=== PATIENT | male | born 1945 | race Caucasian/White ===

== ENCOUNTER 2018-01-27 17:46 | Emergency (ER) | payer MEDICARE, BC ==
--- NOTE | 2018-01-27 18:49 | EDM.PDOC ---
<Chelsea Painting - Last Filed: 01/27/18 19:34> ED HPI GENERAL MEDICAL PROBLEM - General Chief Complaint: Upper Extremity Injury/Pain Stated Complaint: [id number] CRACKED WRIST Time Seen by Provider: 01/27/18 18:30 Source of Information: Reports: Patient, RN, RN Notes Reviewed History Limitations: Reports: No Limitations - History of Present Illness INITIAL COMMENTS - FREE TEXT/NARRATIVE: Pt presents to the ER with c/o left wrist pain. Patient states he was changing the blades on his lawnmower when a power tool flew out of his hand and hit him on the left hand/wrist. He states he has a large skin tear on the left hand, but has been having increasing aching and pain in the left wrist. He denies numbness or tingling, states he can move his fingers but not make a fist. Onset: Today, Sudden Duration: Constant Location: Reports: Upper Extremity, Left Quality: Reports: Ache, Dull, Throbbing Severity: Moderate Improves with: Reports: None Worsens with: Reports: None Left Wrist Pain Score (Numeric/FACES): 1 - Related Data Allergies Allergy/AdvReac Type Severity Reaction Status Date / Time tetanus toxoid, adsorbed Allergy Fever Verified 01/27/18 18:00 Home Meds: Home Meds Acetaminophen [Tylenol] 650 mg PO BID 10/17/13 [History] Ascorbic Acid [Vitamin C] 500 mg PO BID 10/17/13 [History] Aspirin [Reese Chewable] 81 mg PO DAILY 10/17/13 [History] Clopidogrel Bisulfate [Clopidogrel] 1 tab PO DAILY 10/17/13 [History] Finasteride 1 tab PO DAILY 10/17/13 [History] Garlic 1,000 mg PO DAILY 10/17/13 [History] Glucosamine HCl/Chondr Asencio A Na [Osteo Bi-Flex Caplet] 1 tab PO DAILY 10/17/13 [ History] Niacin 500 gm MC DAILY 10/17/13 [History] atorvaSTATin [Lipitor] 2 tab PO DAILY 10/17/13 [History] Multivitamin [Multi-Vitamin Daily] 1 tab PO DAILY 05/27/14 [History] Nitroglycerin [Nitrostat] 0.4 mg SL ASDIRECTED PRN 05/27/14 [History] Omeprazole [Prilosec] 20 mg PO BEDTIME 05/27/14 [History] Diltiazem HCl [Cartia Xt] 180 mg PO DAILY 05/29/16 [History] Oxybutynin Chloride [Ditropan Xl] 10 mg PO DAILY 05/29/16 [History] Tamsulosin [Flomax] 0.4 mg PO DAILY 05/29/16 [History] Ohlman-3/DHA/Epa/Fish Oil [Fish Oil 1,000 mg Softgel] 1 cap PO BID 01/27/18 [ History] Past Medical History HEENT History: Reports: None Cardiovascular History: Reports: CAD, High Cholesterol Respiratory History: Reports: None Gastrointestinal History: Reports: GERD Genitourinary History: Reports: BPH, Prostate Disorder Musculoskeletal History: Reports: None Neurological History: Reports: None Psychiatric History: Reports: None Endocrine/Metabolic History: Reports: None Hematologic History: Reports: None Immunologic History: Reports: None Oncologic (Cancer) History: Reports: None Dermatologic History: Reports: None - Infectious Disease History Infectious Disease History: Reports: Chicken Pox, Mumps - Past Surgical History Head Surgeries/Procedures: Reports: None Cardiovascular Surgical History: Reports: Coronary Artery Stent Social & Family History - Family History Family Medical History: Noncontributory - Tobacco Use Smoking Status *Q: Never Smoker Second Hand Smoke Exposure: No - Caffeine Use Caffeine Use: Reports: Coffee - Recreational Drug Use Recreational Drug Use: No - Living Situation & Occupation Living situation: Reports: , with Spouse Occupation: Retired Review of Systems - Review of Systems Review Of Systems: ROS reveals no pertinent complaints other than HPI. ED EXAM, GENERAL - Physical Exam Exam: See Below Exam Limited By: No Limitations General Appearance: Alert, WD/WN, No Apparent Distress Eye Exam: Bilateral Eye: EOMI, Normal Inspection Ears: Normal External Exam, Hearing Grossly Normal Nose: Normal Inspection Throat/Mouth: Normal Inspection, Normal Voice, No Airway Compromise Head: Atraumatic, Normocephalic Neck: Normal Inspection, Full Range of Motion Respiratory/Chest: No Respiratory Distress, Lungs Clear, Normal Breath Sounds, No Accessory Muscle Use, Chest Non-Tender Cardiovascular: Normal Peripheral Pulses, Regular Rate, Rhythm, No Edema, No Gallop, No JVD, No Murmur, No Rub Peripheral Pulses: 2+: Radial (L), Radial (R) GI/Abdominal: Normal Bowel Sounds, Soft, Non-Tender (Male) Exam: Deferred Rectal (Males) Exam: Deferred Back Exam: Normal Inspection, Full Range of Motion Extremities: Joint Swelling (left wrist), Arm Pain (left), Limited Range of Motion (left wrist/hand) Neurological: Alert, Oriented, CN II-XII Intact, Normal Cognition, Normal Gait, Normal Reflexes, No Motor/Sensory Deficits Psychiatric: Normal Affect, Normal Mood Skin Exam: Warm, Dry, Normal Color, No Rash, Other (3cm x 2cm skin tear on the top of the left hand) Lymphatic: No Adenopathy Course - Vital Signs Last Recorded V/S: Last Vital Signs Temp 98.6 F 01/27/18 17:53 Pulse 92 01/27/18 17:53 Resp 16 01/27/18 17:53 BP 175/73 H 01/27/18 17:53 Pulse Ox 98 01/27/18 17:53 - Orders/Labs/Meds Orders: Active Orders 24 hr Category Date Time Status Wrist Comp Min 3V Lt [CR] Urgent Exams 01/27/18 18:28 Ordered Meds: Medications Discontinued Medications Generic Name Dose Route Start Last Admin Trade Name Conor PRN Reason Stop Dose Admin Bacitracin 1 dose 01/27/18 19:11 01/27/18 20:05 Bacitracin Oint 1 Gm TOP 01/27/18 19:12 1 dose ONETIME ONE Administration Departure - Departure Disposition: Home, Self-Care 01 Clinical Impression: Skin tear Wrist sprain Qualifiers: Encounter type: initial encounter Laterality: left Qualified Code(s): S63.502A - Unspecified sprain of left wrist, initial encounter - Discharge Information Instructions: Wrist Sprain, Adult, Skin Tear Care Referrals: Fahad Redd MD [Primary Care Provider] - Forms: ED Department Discharge Additional Instructions: ice and rest to left wrist, follow up one week in clinic if continued pain antibiotic ointment and dressing to cover skin tear, wash at least twice daily with warm sopa and water follow up if any redness or drainage from wound tylenol for discomfort <Kathi Vargas - Last Filed: 01/27/18 20:18> Departure - Departure Time of Disposition: 20:16 Condition: Good
[2018-01-27] MEDS ORDERED: Bacitracin Oint 1 GM U/D Packet TOP ONE (19:11)
[2018-01-27 20:17] VITALS: BP 169/81
== END 2018-01-27 20:23 | disposition home or self-care (01) ==
LOC: DL.ED 17:46
DX: S61.412A Laceration without foreign body of left hand, initial encounter (principal); S63.502A Unspecified sprain of left wrist, initial encounter; W26.9XXA Contact with unspecified sharp object(s), initial encounter; Z88.7 Allergy status to serum and vaccine; Z79.82 Long term (current) use of aspirin; Z79.899 Other long term (current) drug therapy
CPT/HCPCS: 73110-LT; 99282; 99283

== ENCOUNTER 2021-03-07 06:05 | Day surgery (SDC) | payer MEDICARE, OTHER ==
[~2021-03-07 06:05] MED LIST: Dextrose 5%-0.45% NaCl 1,000 ML IV SCH; Sodium Chloride 0.9% 10 ML Syringe FLUSH PRN
[2021-03-07] MEDS ORDERED: Midazolam 1 MG/ML 2 ML SDV IV ONE ×4 (06:06→07:32)
[2021-03-07] MEDS ORDERED: fentaNYL 100 MCG/2 ML SDV IV ONE ×3 (06:06→07:30)
[2021-03-07] MEDS ORDERED: fentaNYL 100 MCG/2 ML SDV ONE (06:34)
[2021-03-07] MEDS ORDERED: Midazolam 1 MG/ML 2 ML SDV ONE (06:34)
--- NOTE | 2021-03-07 08:35 | OR ---
DATE: 03/07/2021 PROCEDURE: Esophageal dilatation. INSTRUMENT USED: Davies bougie dilator, [place], size 48. PREMEDICATIONS: Done after esophagogastroduodenoscopy. INDICATION: The patient with dysphagia and non-constricting Schatzki ring. PROCEDURE IN DETAIL: Esophageal dilatation was done with ease. No blood was noted at the dilated tip after conclusion. IMPRESSION: Non-constricting Schatzki ring. The patient tolerated the procedure well. [facility] /[id number]
--- NOTE | 2021-03-07 08:48 | OR ---
DATE: 03/07/2021 PROCEDURE: Esophagogastroduodenoscopy and multiple pinch biopsies. INSTRUMENT USED: [id number] Olympus video panendoscope. PREMEDICATIONS: No oral or topical anesthesia used. Fentanyl 100 mcg intravenous, Versed 2 mg intravenous. Nasal O2 cannula. The procedure was done under pulse oximetry, BP recording, and seismic plotter. INDICATION: The patient with dysphagia unexplained and not responsive to medical measures, on high-dose PPI. Esophagogastroduodenoscopy is performed for detection of any active erosive lesions, Pereira esophagus and/or malignancy also under consideration, H pylori status to be determined, esophageal dilatations if indicated, endoscopic hemostasis therapy if needed. DESCRIPTION OF PROCEDURE: The scope was passed with ease. Adequate visualization of the esophagus was made from proximal to distal areas. No upper esophageal lesions identified. No distal esophageal stricture. No uphill or downhill esophageal varices. No Josseline-Pisano tear. No esophageal polyp or tumor mass identified. Non-constricting Schatzki ring was noted. No proximal gastric varices noted. Gastric fundus examination by retroflexion showed no polypoid lesions. No gastric ulcer, malignant mass, or vascular ectasia identified. Duodenal bulb showed no ulcer. Visualized second part of the duodenum was unremarkable. Multiple pinch biopsies were taken from the gastric antrum and proximal body and sent for PyloriTek test for H pylori, and if negative in an hour the tissues will be sent for histopathology. No bleeding was noted from any of the visualized areas at the completion of examination. Photographs were taken of the duodenal bulb, gastric antrum, fundus, and distal esophagus. IMPRESSION: Non-constricting Schatzki ring. The patient tolerated the procedure well. [facility] /[id number]
[2021-03-07 09:39] VITALS: BP 145/85; PULSE 87
== END 2021-03-07 09:47 | disposition home or self-care (01) ==
LOC: DL.ENDO 06:05
PROVIDERS: ATTEND Internal Medicine Gastroenterology
DX: K22.2 Esophageal obstruction (principal); I25.10 Atherosclerotic heart disease of native coronary artery without angina pectoris; E66.01 Morbid (severe) obesity due to excess calories; I10 Essential (primary) hypertension; K21.9 Gastro-esophageal reflux disease without esophagitis; N40.0 Benign prostatic hyperplasia without lower urinary tract symptoms; Z79.82 Long term (current) use of aspirin; E78.5 Hyperlipidemia, unspecified; Z88.7 Allergy status to serum and vaccine; Z68.35 Body mass index [BMI] 35.0-35.9, adult
CPT/HCPCS: 43239; 43450; 87077; J2250; J3010; J7042

== ENCOUNTER 2022-05-29 05:06 | Emergency (ER) | payer MEDICARE, OTHER ==
[2022-05-29] MEDS ORDERED: Acetaminophen/oxyCODONE 325-5 MG Tab PO ONE ×2 (05:07→05:33)
[2022-05-29 05:15] VITALS: BP 165/81; PULSE 87
[2022-05-29 06:22] LABS: ANION GAP 10.6 mEq/L (7-13)
[2022-05-29] MEDS ORDERED: Ketorolac 30 MG/ML SDV IM ONE (06:45)
== END 2022-05-29 08:20 | disposition home or self-care (01) ==
LOC: DL.ED 05:06
DX: R07.81 Pleurodynia (principal); I25.10 Atherosclerotic heart disease of native coronary artery without angina pectoris; E78.00 Pure hypercholesterolemia, unspecified; I10 Essential (primary) hypertension; I25.2 Old myocardial infarction; K21.9 Gastro-esophageal reflux disease without esophagitis; E66.9 Obesity, unspecified; Z68.35 Body mass index [BMI] 35.0-35.9, adult; Z88.7 Allergy status to serum and vaccine; Z79.82 Long term (current) use of aspirin; Z79.02 Long term (current) use of antithrombotics/antiplatelets; Z79.899 Other long term (current) drug therapy
CPT/HCPCS: 36415; 71100-LT; 80053; 83605; 83735; 83880; 84484; 85025; 87040; 93005; 93010; 96372; 99284; A9270-GY; J1885

== ENCOUNTER 2022-11-11 16:12 | Emergency (ER) | payer MEDICARE, OTHER ==
[2022-11-11 16:21] VITALS: BP 149/65; PULSE 88
== END 2022-11-11 16:30 | disposition home or self-care (01) ==
LOC: DL.ED 16:12
DX: S61.012A Laceration without foreign body of left thumb without damage to nail, initial encounter (principal); I10 Essential (primary) hypertension; I25.10 Atherosclerotic heart disease of native coronary artery without angina pectoris; I25.2 Old myocardial infarction; K21.9 Gastro-esophageal reflux disease without esophagitis; E78.00 Pure hypercholesterolemia, unspecified; E66.9 Obesity, unspecified; Z68.36 Body mass index [BMI] 36.0-36.9, adult; Z79.899 Other long term (current) drug therapy; Z88.7 Allergy status to serum and vaccine; W26.0XXA Contact with knife, initial encounter
CPT/HCPCS: 99282; 99283

== ENCOUNTER 2025-06-16 22:33 | Emergency (ER) | payer MEDICARE, OTHER ==
[2025-06-16 23:35] VITALS: BP 126/65; PULSE 69
[2025-06-16 23:51] LABS: BASOPHILS PERCENT AUTO 0.2 % (0.0-1.0); EOSINOPHILS PERCENT AUTO 1.5 % (1.0-3.0); LYMPHOCYTES PERCENT AUTO 15.9 % (20.5-50.1); MONOCYTES PERCENT AUTO 10.8 % (2-8); NEUTROPHILS PERCENT AUTO 71.6 % (42.2-75.2); PLATELET COUNT,PLT 253 10^3/uL (150-450); RED BLOOD CELL COUNT 4.34 10^6/uL (4.6-6.2); WHITE BLOOD CELL COUNT,WBC 8.5 10^3/uL (5.0-10.0)
[2025-06-16 23:57] LABS: APPEARANCE,URINE CLEAR (CLEAR); GLUCOSE,URINE NEGATIVE (NEGATIVE); OCCULT BLOOD,URINE NEGATIVE (NEGATIVE)
[2025-06-17 00:04] LABS: A/G RATIO 0.9; ALANINE AMINOTRANSFERASE,ALT 21.0 U/L (16-63); ASPARTATE AMNIOTRANSFERASE,AST 15.0 U/L (15-37); BILIRUBIN TOTAL 0.3 mg/dL (0.2-1.0); BLOOD UREA NITROGEN,BUN 21.0 mg/dL (7-18); CARBON DIOXIDE,CO2 26.0 mmol/L (21-32); CHLORIDE,CL 102.0 mmol/L (98-107); CREATININE 1.0 mg/dL (0.70-1.30); EST CRCL DRUG DOSING (CG) 47.69 mL/min; GLUCOSE RANDOM 121.0 mg/dL (70-99); POTASSIUM,K 4.0 mmol/L (3.5-5.1); PROTEIN TOTAL,TP 7.3 g/dL (6.4-8.2); SODIUM,NA 135.0 mmol/L (136-145)
[2025-06-17 00:05] LABS: ESTIMATED GFR 75.0 mL/min (>=60); LACTIC ACID 1.2 mmol/L (0.4-2.0)
[2025-06-17 00:27] LABS: EPITHELIAL CELLS,URINE RARE /HPF (NOT SEEN)
== END 2025-06-17 00:45 | disposition home or self-care (01) ==
LOC: DL.ED 22:33
DX: H81.10 Benign paroxysmal vertigo, unspecified ear (principal); I10 Essential (primary) hypertension; I25.2 Old myocardial infarction; I25.10 Atherosclerotic heart disease of native coronary artery without angina pectoris; E78.00 Pure hypercholesterolemia, unspecified; E66.9 Obesity, unspecified; M19.90 Unspecified osteoarthritis, unspecified site; Z79.899 Other long term (current) drug therapy; Z79.82 Long term (current) use of aspirin; Z68.38 Body mass index [BMI] 38.0-38.9, adult
CPT/HCPCS: 36415; 80053; 81001; 83605; 83735; 84484; 85025; 87086; 93010; 96360; 99284; 99284-25; J7030